=== PATIENT | female | born 1960 | race Caucasian/White ===

== ENCOUNTER 2020-08-07 08:29 | Emergency (ER) | payer OTHER, BC ==
[~2020-08-07] VITALS: Ht 170.2 cm; Wt 98.8 kg
[~2020-08-07 08:29] MED LIST: CYCL-1 PO; METH4TAB81 PO
[2020-08-07 08:30] VITALS: BP 156/84
[2020-08-07] MEDS ORDERED: ketorolac tromethamine 15mg/ml inj. IM ONE (10:10)
[2020-08-07] MEDS ORDERED: orphenadrine citrate 60mg/2ml inj. IM ONE (10:10)
== END 2020-08-07 10:58 | disposition home or self-care (01) ==
LOC: ER 08:29
DX: M54.42 Lumbago with sciatica, left side (principal); G89.29 Other chronic pain; Z98.890 Other specified postprocedural states; Z79.899 Other long term (current) drug therapy; V87.7XXA Person injured in collision between other specified motor vehicles (traffic), initial encounter; Y93.89 Activity, other specified; Y92.488 Other paved roadways as the place of occurrence of the external cause; Y99.8 Other external cause status
CPT/HCPCS: 96372; 99284; J1885; J2360